=== PATIENT | male | born 1995 | race Caucasian/White ===

== ENCOUNTER 2017-01-11 21:19 | Emergency (ER) | payer OTHER ==
[~2017-01-11] VITALS: Ht 175.3 cm; Wt 71.0 kg
[~2017-01-11 21:19] MED LIST: ABIL5TAB6 PO; CLON0.1T PO; VYVA50CA3 PO
[2017-01-11 21:29] VITALS: BP 133/79; PULSE 60; RESP 18; TEMP 98.3; O2SAT 99
[2017-01-11] MEDS ORDERED: ABIL2TAB2 PO (21:35)
[2017-01-11] MEDS ORDERED: COLA100C PO (21:54)
[2017-01-11] MEDS ORDERED: SENN8.6T15 PO (21:54)
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
== END 2017-01-11 22:01 | disposition home or self-care (01) ==
LOC: PHED 21:19
DX: K59.00 Constipation, unspecified (principal); F17.210 Nicotine dependence, cigarettes, uncomplicated
CPT/HCPCS: 99284

== ENCOUNTER 2017-03-09 07:21 | Emergency (ER) | payer OTHER ==
[~2017-03-09] VITALS: Ht 175.3 cm; Wt 66.0 kg
[~2017-03-09 07:21] MED LIST changes: -ABIL5TAB6 PO; +ARIP1TAB11 PO; +COLA100C PO; +SENN8.6T15 PO
[2017-03-09 07:22] VITALS: BP 140/91; PULSE 63; RESP 16; TEMP 97.8; O2SAT 98
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
== END 2017-03-09 07:41 | disposition left against medical advice (07) ==
LOC: NEPK 07:21
DX: R68.84 Jaw pain (principal); K08.89 Other specified disorders of teeth and supporting structures; Z72.0 Tobacco use
CPT/HCPCS: 99281